=== PATIENT | male | born 1960 | race Caucasian/White ===

== ENCOUNTER 2021-03-03 17:39 | Emergency (ER) | payer BC, SELFPAY ==
--- NOTE | ~2021-03-03 | XR_ITS ---
EXAMINATION:[id number] DATE: 03/03/2021 18:39 INDICATION: Neck pain TECHNIQUE: AP, lateral, and odontoid views of the cervical spine are provided. COMPARISON: None FINDINGS: There are changes of anterior fusion from C4 through C6. There are 2 mm of retrolisthesis o f C4 on C5 and 2 mm of anterolisthesis of C3 on C4. There is moderate multilevel facet and uncoverteb ral joint osteoarthritis. The odontoid is intact. No fracture is identified. Vertebral body heights a nd disk spaces are normal. Prevertebral soft tissues are normal. IMPRESSION: 1. Mild cervical spondylosis and postsurgical changes without acute findings. Reviewed, dictated and finalized at location A.
[2021-03-03 17:42] VITALS: BP 148/100; PULSE 81; RESP 20; TEMP 36.5; O2SAT 98
[2021-03-03] MEDS: diazePAM INJ (*CRX) 10 MG/2 ML SYRINGE 5 MG IV PUSH (18:26)
[2021-03-03] MEDS: KETOROLAC 30 MG/ML VIAL (*BKC) IV PUSH (18:26)
--- NOTE | 2021-03-03 19:16 | PC.NURSE ---
assumed care at thi time. Report from KAMAR Garcia
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
[2021-03-03 20:03] VITALS: BP 142/96; PULSE 78; RESP 20; O2SAT 100
== END 2021-03-03 20:04 | disposition home or self-care (01) ==
PROVIDERS: Emergency Provider Emergency Medicine
DX: S16.1XXA Strain of muscle, fascia and tendon at neck level, initial encounter (principal); I10 Essential (primary) hypertension; Z87.442 Personal history of urinary calculi; Z98.1 Arthrodesis status; F17.200 Nicotine dependence, unspecified, uncomplicated; M47.812 Spondylosis without myelopathy or radiculopathy, cervical region; X50.9XXA Other and unspecified overexertion or strenuous movements or postures, initial encounter
CPT/HCPCS: 72040; 96374; 96375; 99284; J1885; J3360